=== PATIENT | female | born 1930 | race Caucasian/White ===

== ENCOUNTER → 2016-11-08 | Outpatient (REF) | payer MEDICARE, OTHER ==
[~2016-11-08] MED LIST: ALBU17IN INH; ASPI1TAB PO; AVEL1TAB PO; BACITAB3 PO; BREO1INH IN; DILT120T PO; ESTR1TAB PO; IPRASOL4 NEB; KLOR1TAB69 PO; LEVO112T25 PO; LOSA100T36 PO; NAPR500T2 PO; PAXI20TA3 PO; PRED20TAB PO; PRED50TA PO; TOPR50TA PO
[2016-11-08 12:34] LABS: CALCIUM LEVEL 9.4 MG/DL (8.8-10.2); CREATININE FOR GFR 0.95 MG/DL (0.55-1.02); GLOMERULAR FILTRATION RATE 59.5 (>32)
[2016-11-08 12:36] LABS: POTASSIUM SERUM 5.2 MEQ/L (3.5-5.1)
== END ==
LOC: M LABDRAW1 11:26
PROVIDERS: ATTEND Physician Assistant Medical
DX: J06.9 Acute upper respiratory infection, unspecified (principal)

== ENCOUNTER → 2017-01-16 | Outpatient (REF) | payer MEDICARE, OTHER ==
[2017-01-16 16:29] LABS: BASO # 0.1 K/mm3 (0.0-0.2); BASO % 0.8 % (0.0-1.0); EOS # 0.4 K/mm3 (0.0-0.50); EOS % 4.5 % (0.0-3.0); LYMPH # 2.1 K/mm3 (1.5-4.5); LYMPH % 21.2 % (24.0-44.0); MEAN CORPUSCULAR HEMOGLOBIN 30.3 pg (27.0-33.0); MEAN CORPUSCULAR HGB CONC 31.8 g/dl (32.0-36.5); MEAN CORPUSCULAR VOLUME 95.4 fl (80.0-96.0); MONO # 0.5 K/mm3 (0.0-0.8); MONO % 5.5 % (0.0-5.0); NEUTROPHILS # 6.3 K/mm3 (1.8-7.7); NEUTROPHILS % 67.2 % (36.0-66.0); RED CELL DISTRIBUTION WIDTH 13.1 % (11.5-14.5); WHITE BLOOD COUNT 9.4 K/mm3 (4.0-10.0)
[2017-01-16 16:44] LABS: ALBUMIN 2.8 GM/DL (3.2-5.2); ALBUMIN/GLOBULIN RATIO 0.62 (1.00-1.93); ALKALINE PHOSPHATASE 83 U/L (45-117); ALT/SGPT 11 U/L (12-78); ANION GAP 8 MEQ/L (8-16); AST/SGOT 11 U/L (15-37); BILIRUBIN,TOTAL 0.2 MG/DL (0.2-1.0); BLOOD UREA NITROGEN 13 MG/DL (7-18); CALCIUM LEVEL 8.9 MG/DL (8.8-10.2); CARBON DIOXIDE LEVEL 27 MEQ/L (21-32); CHLORIDE LEVEL 102 MEQ/L (98-107); CHOLESTEROL LEVEL 172 MG/DL (<200); CREATININE FOR GFR 0.62 MG/DL (0.55-1.02); GLOMERULAR FILTRATION RATE > 60.0 (>32); GLUCOSE, FASTING 104 MG/DL (83-110); POTASSIUM SERUM 4.4 MEQ/L (3.5-5.1); SODIUM LEVEL 137 MEQ/L (136-145); TOTAL PROTEIN 7.3 GM/DL (6.4-8.2); TRIGLYCERIDES LEVEL 100 MG/DL (<150)
== END ==
LOC: M LABDRAW1 15:55
PROVIDERS: ATTEND Physician Assistant Medical
DX: I10 Essential (primary) hypertension (principal)

== ENCOUNTER → 2017-03-19 | Outpatient (CLI) | payer MEDICARE, OTHER ==
[2017-03-19 19:49] LABS: THYROXINE (T4) 13.4 UG/DL (4.5-12.0)
== END ==
LOC: M LAB 15:29
PROVIDERS: ATTEND Physician Assistant Medical
DX: E03.9 Hypothyroidism, unspecified (principal)

== ENCOUNTER 2017-06-08 10:17 | Emergency (ER) | payer MEDICARE, OTHER ==
[~2017-06-08] VITALS: Ht 152.4 cm; Wt 78.1 kg
[~2017-06-08 10:17] MED LIST changes: -AVEL1TAB PO; +AVEL1TAB3 PO; +BACITAB PO; -BACITAB3 PO; -NAPR500T2 PO; +NAPR500T3 PO; +PAXI20TA29 PO; -PAXI20TA3 PO
--- NOTE | 2017-06-08 11:16 | REP ---
Right forearm two views: There is no fracture or dislocation. Mineralization and joint spaces are normal. There are no calcifications or foreign bodies. Impression: Negative right forearm . Signed by Darrick Langston MD 06/08/2017 11:08 A
[2017-06-08 11:54] VITALS: BP 143/69
== END 2017-06-08 12:01 | disposition home or self-care (01) ==
LOC: M ED 10:17
DX: S51.811A Laceration without foreign body of right forearm, initial encounter (principal); S50.811A Abrasion of right forearm, initial encounter; X58.XXXA Exposure to other specified factors, initial encounter; Y92.099 Unspecified place in other non-institutional residence as the place of occurrence of the external cause; Y93.9 Activity, unspecified; Y99.9 Unspecified external cause status; F03.90 Unspecified dementia, unspecified severity, without behavioral disturbance, psychotic disturbance, mood disturbance, and anxiety; I10 Essential (primary) hypertension; C34.90 Malignant neoplasm of unspecified part of unspecified bronchus or lung; Z87.01 Personal history of pneumonia (recurrent); Z87.440 Personal history of urinary (tract) infections; E03.9 Hypothyroidism, unspecified; F41.9 Anxiety disorder, unspecified; K92.9 Disease of digestive system, unspecified; Z79.82 Long term (current) use of aspirin; Z79.899 Other long term (current) drug therapy; Z88.5 Allergy status to narcotic agent

== ENCOUNTER → 2017-08-14 | Outpatient (REF) | payer MEDICARE, OTHER ==
[2017-08-14 09:32] LABS: MEAN CORPUSCULAR HEMOGLOBIN 30.7 pg (27.0-33.0); MEAN CORPUSCULAR VOLUME 95.8 fl (80.0-96.0); RED CELL DISTRIBUTION WIDTH 13.6 % (11.5-14.5); WHITE BLOOD COUNT 8.9 10^3/uL (4.0-10.0)
[2017-08-14 10:15] LABS: ALBUMIN 2.9 GM/DL (3.2-5.2); ALBUMIN/GLOBULIN RATIO 0.57 (1.00-1.93); ALKALINE PHOSPHATASE 78 U/L (45-117); ALT/SGPT 17 U/L (12-78); ANION GAP 6 MEQ/L (8-16); AST/SGOT 16 U/L (15-37); BILIRUBIN,TOTAL 0.3 MG/DL (0.2-1.0); BLOOD UREA NITROGEN 18 MG/DL (7-18); CALCIUM LEVEL 9.4 MG/DL (8.8-10.2); CARBON DIOXIDE LEVEL 30 MEQ/L (21-32); CHLORIDE LEVEL 102 MEQ/L (98-107); CREATININE FOR GFR 0.69 MG/DL (0.55-1.02); GLOMERULAR FILTRATION RATE > 60.0 (>32); GLUCOSE, FASTING 98 MG/DL (83-110); POTASSIUM SERUM 4.6 MEQ/L (3.5-5.1); SODIUM LEVEL 138 MEQ/L (136-145)
== END ==
LOC: SKLAB8 07:00
PROVIDERS: ATTEND Internal Medicine
DX: I10 Essential (primary) hypertension (principal); J44.9 Chronic obstructive pulmonary disease, unspecified; E03.9 Hypothyroidism, unspecified; F41.9 Anxiety disorder, unspecified; F02.80 Dementia in other diseases classified elsewhere, unspecified severity, without behavioral disturbance, psychotic disturbance, mood disturbance, and anxiety

== ENCOUNTER → 2017-10-25 | Outpatient (REF) | payer MEDICARE, OTHER | LOC: SKLAB8 12:54 | DX: R05 Cough (principal) | CPT/HCPCS: 87633 ==

== ENCOUNTER → 2017-10-29 | Outpatient (REF) | payer MEDICARE, OTHER | LOC: SKLAB8 11:42 | DX: R91.8 Other nonspecific abnormal finding of lung field (principal); J44.9 Chronic obstructive pulmonary disease, unspecified; R05 Cough; R09.81 Nasal congestion | CPT/HCPCS: 71045 ==

== ENCOUNTER → 2017-11-03 | Outpatient (REF) | payer MEDICARE, OTHER ==
[2017-11-03 12:51] LABS: ANION GAP 5 MEQ/L (8-16); BLOOD UREA NITROGEN 19 MG/DL (7-18); CALCIUM LEVEL 9.4 MG/DL (8.8-10.2); CARBON DIOXIDE LEVEL 30 MEQ/L (21-32); CHLORIDE LEVEL 103 MEQ/L (98-107); CREATININE FOR GFR 0.72 MG/DL (0.55-1.02); GLOMERULAR FILTRATION RATE > 60.0 (>32); GLUCOSE, FASTING 106 MG/DL (83-110); POTASSIUM SERUM 4.9 MEQ/L (3.5-5.1); SODIUM LEVEL 138 MEQ/L (136-145)
== END ==
LOC: SKLAB8 07:00
DX: I10 Essential (primary) hypertension (principal); J44.9 Chronic obstructive pulmonary disease, unspecified; E03.9 Hypothyroidism, unspecified
CPT/HCPCS: 36415

== ENCOUNTER 2017-11-07 16:13 | Inpatient (IN) | payer MEDICARE, OTHER ==
[2017-11-07 16:39] LABS: BASO # 0.1 10^3/uL (0.0-0.2); BASO % 0.4 % (0.0-1.0); HEMATOCRIT 37.4 % (36.0-47.0); HEMOGLOBIN 11.6 g/dl (12.0-16.0); IMMATURE GRANULOCYTE # 0.1 10^3/uL (0-0); IMMATURE GRANULOCYTE % 0.7 % (0-0); LYMPH # 2.1 10^3/uL (1.5-4.5); LYMPH % 12.7 % (24.0-44.0); MEAN CORPUSCULAR HEMOGLOBIN 30.3 pg (27.0-33.0); MEAN CORPUSCULAR VOLUME 97.7 fl (80.0-96.0); MONO # 1.1 10^3/uL (0.0-0.8); MONO % 6.6 % (0.0-5.0); NEUTROPHILS # 12.9 10^3/uL (1.8-7.7); NEUTROPHILS % 79.6 % (36.0-66.0); PLATELET COUNT, AUTOMATED 449 10^3/uL (150-450); RED BLOOD COUNT 3.83 10^6/uL (4.00-5.40); RED CELL DISTRIBUTION WIDTH 13.6 % (11.5-14.5); WHITE BLOOD COUNT 16.3 10^3/uL (4.0-10.0)
[2017-11-07 16:45] LABS: ABG BASE EXCESS -2.6 (-2.0-2.0); ABG HCO3 25.5 MEQ/L (22.0-26.0); ABG O2 SATURATION 98.5 % (95.0-99.0); ABG PARTIAL PRESSURE O2 135.3 mmHg (75.0-100.0); ABG STANDARD HCO3 22.3 MEQ/L (22.0-26.0); ABG TOTAL CO2 27.4 MEQ/L (23.0-31.0)
[2017-11-07 16:50] LABS: ABG pH (ARTERIAL) 7.244 UNITS (7.350-7.450)
[2017-11-07 16:51] LABS: ABG PARTIAL PRESSURE CO2 60.4 mmHg (35.0-45.0)
[2017-11-07 17:06] LABS: ANION GAP 5 MEQ/L (8-16); BLOOD UREA NITROGEN 23 MG/DL (7-18); CARBON DIOXIDE LEVEL 31 MEQ/L (21-32); CHLORIDE LEVEL 104 MEQ/L (98-107); CK-MB VALUE MASS 2.1 NG/ML (0.0-3.6); CPK CREATINE PHOSPHOKINASE 38 U/L (26-192); CREATININE FOR GFR 0.61 MG/DL (0.55-1.02); GLOMERULAR FILTRATION RATE > 60.0 (>32); GLUCOSE, FASTING 165 MG/DL (83-110); MB/CK RELATIVE INDEX 5.52 (< OR =4); POTASSIUM SERUM 4.5 MEQ/L (3.5-5.1); SODIUM LEVEL 140 MEQ/L (136-145); TROPONIN I < 0.02 NG/ML (< 0.10)
[2017-11-07 17:07] LABS: INR 1.03; PROTHROMBIN TIME 13.6 SECONDS (12.4-14.5)
[2017-11-07 17:07] LABS: LACTIC ACID SEPSIS PROTOCOL 0.8 MMOL/L (0.4-2.0)
[2017-11-07 17:29] LABS: ALBUMIN 3.2 GM/DL (3.2-5.2); ALBUMIN/GLOBULIN RATIO 0.65 (1.00-1.93); ALKALINE PHOSPHATASE 85 U/L (45-117); ALT/SGPT 23 U/L (12-78); AST/SGOT 21 U/L (7-37); BILIRUBIN,DIRECT < 0.1 MG/DL (0.0-0.2); BILIRUBIN,TOTAL 0.3 MG/DL (0.2-1.0); NT-PRO BNP 3212 PG/ML (<450); TOTAL PROTEIN 8.1 GM/DL (6.4-8.2)
[2017-11-07] MEDS: LABETALOL HCL 100 MG/20 ML VIAL IV (17:32)
[2017-11-07 18:12] LABS: ABG BASE EXCESS 2.7 (-2.0-2.0); ABG HCO3 31.1 MEQ/L (22.0-26.0); ABG O2 SATURATION 98.9 % (95.0-99.0); ABG PARTIAL PRESSURE CO2 69.4 mmHg (35.0-45.0); ABG PARTIAL PRESSURE O2 135.3 mmHg (75.0-100.0); ABG STANDARD HCO3 26.9 MEQ/L (22.0-26.0); ABG TOTAL CO2 33.2 MEQ/L (23.0-31.0); ABG pH (ARTERIAL) 7.269 UNITS (7.350-7.450)
[2017-11-07] MEDS: FUROSEMIDE 20 MG/2 ML VIAL (J1940) IV (18:37)
[2017-11-07] MEDS: MOXIFLOXACIN HCL 400 MG in APPROPRIATE DILUENT 1 EA IV (18:38)
[2017-11-07] MEDS: ESCITALOPRAM OXALATE 10 MG TAB (LEXAPRO) PO (21:00)
[2017-11-07] MEDS: ADVAIR HFA 115/21MCG INHALER INH (21:00)
[2017-11-07] MEDS: ASPIRIN 81 MG CHEW TABLET PO (21:00)
[2017-11-07] MEDS ORDERED: BISACODYL 10 MG SUPP PR (21:15)
[2017-11-07] MEDS ORDERED: ACETAMINOPHEN TAB 650MG DOSE (2X325MG) PO (21:15)
[2017-11-07] MEDS ORDERED: MORPHINE 2 MG/ML 1ML SYRINGE IV ×3 (21:30→22:15)
[2017-11-07] MEDS ORDERED: ONDANSETRON 4MG/2ML VIAL (J2405) IV (21:30)
[2017-11-08] MEDS: ALBUTEROL SULFATE 2.5 MG/0.5 ML INH NEB SOLN INH (03:24)
[2017-11-08] MEDS: LORazepam 2 MG/ML VIAL (J2060) IV ×2 (05:40→09:41)
[2017-11-08] MEDS: LEVOTHYROXINE 100MCG TABLET (0.1MG) PO ×2 (06:10→06:11)
[2017-11-08] MEDS ORDERED: IPRATROPIUM 0.5MG/ALBUTEROL 2.5MG INH SOL UD 3ML (DUONEB)(J7620) NEB (09:15)
[2017-11-08] MEDS ORDERED: ONDANSETRON 4MG/2ML VIAL (J2405) IV (09:15)
[2017-11-08] MEDS: ADVAIR HFA 115/21MCG INHALER INH ×2 (09:21→20:55)
[2017-11-08] MEDS: PANTOPRAZOLE 40MG TAB (PROTONIX) PO (09:43)
[2017-11-08] MEDS: METOPROLOL TART 50 MG TAB PO (09:43)
[2017-11-08] MEDS: LOSARTAN 50 MG TAB PO (09:43)
[2017-11-08] MEDS: MORPHINE 2 MG/ML 1ML SYRINGE IV ×3 (12:44→21:56)
[2017-11-08] MEDS: IPRATROPIUM 0.5MG/ALBUTEROL 2.5MG INH SOL UD 3ML (DUONEB)(J7620) NEB ×2 (13:57→20:00)
[2017-11-08] MEDS: SCOPOLAMINE 1MG TRANSDERMAL PATCH TOP (14:14)
[2017-11-08] MEDS: ASPIRIN 81 MG CHEW TABLET PO (21:08)
[2017-11-08] MEDS: ESCITALOPRAM OXALATE 10 MG TAB (LEXAPRO) PO (21:09)
[2017-11-09] MEDS: IPRATROPIUM 0.5MG/ALBUTEROL 2.5MG INH SOL UD 3ML (DUONEB)(J7620) NEB ×4 (02:00→22:55)
[2017-11-09] MEDS ORDERED: MORPHINE 2 MG/ML 1ML SYRINGE As Ordered (03:00)
[2017-11-09] MEDS: MORPHINE 2 MG/ML 1ML SYRINGE IV ×3 (03:07→09:22)
[2017-11-09] MEDS: LEVOTHYROXINE 100MCG TABLET (0.1MG) PO (05:30)
[2017-11-09] MEDS: LORazepam 2 MG/ML VIAL (J2060) IV ×4 (06:14→22:54)
[2017-11-09] MEDS: ADVAIR HFA 115/21MCG INHALER INH (08:11)
[2017-11-09] MEDS: LOSARTAN 50 MG TAB PO (08:33)
[2017-11-09] MEDS: METOPROLOL TART 50 MG TAB PO (08:33)
[2017-11-09] MEDS: PANTOPRAZOLE 40MG TAB (PROTONIX) PO (08:33)
[2017-11-09] MEDS: ASPIRIN 81 MG CHEW TABLET PO (21:00)
[2017-11-09] MEDS: ESCITALOPRAM OXALATE 10 MG TAB (LEXAPRO) PO (21:00)
[2017-11-09] MEDS: ATROPINE SULFATE 1% OP SOLN 2 ML BTL SL (22:55)
[2017-11-10] MEDS: LEVOTHYROXINE 100MCG TABLET (0.1MG) PO (05:34)
[2017-11-10] MEDS: ADVAIR HFA 115/21MCG INHALER INH ×2 (06:59→21:00)
[2017-11-10] MEDS: IPRATROPIUM 0.5MG/ALBUTEROL 2.5MG INH SOL UD 3ML (DUONEB)(J7620) NEB ×4 (06:59→20:50)
[2017-11-10] MEDS: LOSARTAN 50 MG TAB PO (08:45)
[2017-11-10] MEDS: METOPROLOL TART 50 MG TAB PO (08:45)
[2017-11-10] MEDS: PANTOPRAZOLE 40MG TAB (PROTONIX) PO (08:46)
[2017-11-10] MEDS: MORPHINE 2 MG/ML 1ML SYRINGE IV (10:46)
[2017-11-10] MEDS: LORazepam 2 MG/ML VIAL (J2060) IV (19:48)
[2017-11-10] MEDS: ASPIRIN 81 MG CHEW TABLET PO (21:00)
[2017-11-10] MEDS: ESCITALOPRAM OXALATE 10 MG TAB (LEXAPRO) PO (21:00)
[2017-11-11] MEDS: MORPHINE 2 MG/ML 1ML SYRINGE IV ×3 (03:32→11:10)
[2017-11-11] MEDS: LEVOTHYROXINE 100MCG TABLET (0.1MG) PO (06:00)
[2017-11-11] MEDS: IPRATROPIUM 0.5MG/ALBUTEROL 2.5MG INH SOL UD 3ML (DUONEB)(J7620) NEB ×4 (08:00→21:28)
[2017-11-11] MEDS: ADVAIR HFA 115/21MCG INHALER INH ×2 (09:00→21:00)
[2017-11-11] MEDS: LOSARTAN 50 MG TAB PO (09:25)
[2017-11-11] MEDS: METOPROLOL TART 50 MG TAB PO (09:26)
[2017-11-11] MEDS: PANTOPRAZOLE 40MG TAB (PROTONIX) PO (09:26)
[2017-11-11] MEDS: LORazepam 2 MG/ML VIAL (J2060) IV (16:48)
[2017-11-11] MEDS: ASPIRIN 81 MG CHEW TABLET PO (21:00)
[2017-11-11] MEDS: ESCITALOPRAM OXALATE 10 MG TAB (LEXAPRO) PO (21:00)
[2017-11-12] MEDS: MORPHINE 2 MG/ML 1ML SYRINGE IV ×2 (03:19→08:04)
[2017-11-12] MEDS: LEVOTHYROXINE 100MCG TABLET (0.1MG) PO (05:15)
[2017-11-12] MEDS: IPRATROPIUM 0.5MG/ALBUTEROL 2.5MG INH SOL UD 3ML (DUONEB)(J7620) NEB (08:00)
[2017-11-12] MEDS: ADVAIR HFA 115/21MCG INHALER INH (09:00)
[2017-11-12] MEDS: PANTOPRAZOLE 40MG TAB (PROTONIX) PO (09:00)
[2017-11-12] MEDS: LOSARTAN 50 MG TAB PO (09:00)
[2017-11-12] MEDS: METOPROLOL TART 50 MG TAB PO (09:00)
== END 2017-11-12 10:33 | disposition home or self-care (01) | DRG 193 ==
LOC: M MS4PR 11-09 13:49 → M ED 16:13 → M ED INP 21:03
DX: J12.1 Respiratory syncytial virus pneumonia (principal); E43 Unspecified severe protein-calorie malnutrition; R64 Cachexia; C34.02 Malignant neoplasm of left main bronchus; C34.31 Malignant neoplasm of lower lobe, right bronchus or lung; J96.11 Chronic respiratory failure with hypoxia; J44.1 Chronic obstructive pulmonary disease with (acute) exacerbation; I16.0 Hypertensive urgency; I25.10 Atherosclerotic heart disease of native coronary artery without angina pectoris; I25.2 Old myocardial infarction; E03.9 Hypothyroidism, unspecified; I69.920 Aphasia following unspecified cerebrovascular disease; I34.0 Nonrheumatic mitral (valve) insufficiency; Z79.899 Other long term (current) drug therapy; F03.90 Unspecified dementia, unspecified severity, without behavioral disturbance, psychotic disturbance, mood disturbance, and anxiety; E78.5 Hyperlipidemia, unspecified; Z87.891 Personal history of nicotine dependence